=== PATIENT | male | born 1985 | race American Indian/Alaskan Native ===

== ENCOUNTER 2017-05-11 17:44 | Emergency (ER) | payer SELFPAY ==
[2017-05-11 19:24] VITALS: BP 136/85
[2017-05-11 20:27] LABS: Hematocrit 51.3 % (35.5-45.6); Hemoglobin 17.2 gm/dl (11.8-15.2); Mean Corpuscular HGB Conc 33 % (32-34); Mean Corpuscular Hemoglobin 31 pg (28-32); Mean Corpuscular Volume 92 fl (84-94); Platelet Count 255 K/mm3 (140-440); Red Blood Count 5.61 M/mm3 (3.65-5.03); Red Cell Distribution Width 13.7 % (13.2-15.2); White Blood Count 13.7 K/mm3 (4.5-11.0)
--- NOTE | 2017-05-11 20:45 | XRay Report ---
FINAL REPORT EXAM: XR CHEST ROUTINE 2V HISTORY: productive cough TECHNIQUE: Two view chest PA and lateral PRIORS: None. FINDINGS: Cardiac and mediastinal contours are unremarkable. No focal pulmonary infiltrate is identified. No pleural fluid collection seen. Pulmonary vasculature is unremarkable. IMPRESSION: Negative two-view chest
[2017-05-11 20:50] LABS: Alanine Aminotransferase 28 units/L (7-56); Albumin 4.8 g/dL (3.9-5); Albumin/Globulin Ratio 1.5 %; Alkaline Phosphatase 74 units/L (35-129); Anion Gap 20 mmol/L; BUN/Creatinine Ratio 16; Blood Urea Nitrogen 14 mg/dL (9-20); Calcium 10.2 mg/dL (8.4-10.2); Carbon Dioxide 26 mmol/L (22-30); Chloride 93.4 mmol/L (98-107); Glucose 93 mg/dL (75-100); Lipase 33 units/L (13-60); Potassium 4.3 mmol/L (3.6-5.0); Sodium 135 mmol/L (137-145); Total Protein 8.1 g/dL (6.3-8.2)
[2017-05-11 21:14] LABS: Bilirubin,Urine NEG (Negative); Blood,Urine NEG (Negative); Ketones,Urine 20 mg/dL (Negative); Leukocyte Esterase,Urine SM (Negative); Mucus,Urine 3+ /HPF; Nitrite,Urine NEG (Negative); Urobilinogen,Urine < 2.0 mg/dL (<2.0)
[2017-05-11 21:55] LABS: Basophils % (Manual) 0 % (0.0-1.8); Blastocytes % (Manual) 0 %; Eosinophils % (Manual) 0 % (0.0-4.3)
[2017-05-11 21:56] LABS: Diff Status Complete; RBC Morphology Normal
--- NOTE | 2017-05-12 00:47 | Emergency Department Report ---
HPI - General Chief Complaint: Upper Respiratory Infection Time Seen by Provider: 05/12/17 00:29 - HPI HPI: This is a 32-year-old male presents to the emergency department with a couple different complaints. The patient has been having a 2.5 week history of a productive cough. Over the past 3 days he has also been having some low back pain. He denies any problems with bowel or bladder, numbness or paresthesias or any neurological deficits. He took some ibuprofen for his symptoms and has had some relief since he has been in the emergency department. Finally he also complains of some bilateral lateral abdominal discomfort. This also appears to have improved with the ibuprofen and since being in the emergency department. He denies any other past medical history. He does not have a primary care physician. He says that he does have children and they have had some different illnesses including pinkeye recently. No recent travel. He denies any fever, chest pain, shortness of breath. He denies tobacco abuse. ED Past Medical Hx - Past Medical History Previous Medical History?: Yes - Surgical History Past Surgical History?: Yes Additional Surgical History: Left ACL surgery 2013 - Social History Smoking Status: Current Some Day Smoker Substance Use Type: Alcohol, Marijuana - Medications Home Medications: Home Medications Medication Instructions Recorded Confirmed Last Taken Type ALBUTEROL Inhaler [ProAir HFA 2 puff IH QID PRN #1 inhalation 05/12/17 Unknown Rx Inhaler] guaiFENesin/CODEINE [Robitussin AC] 5 ml PO Q6H PRN #100 ml 05/12/17 Unknown Rx ED Review of Systems ROS: Stated complaint: BACK/ABDOMINAL PAIN Other details as noted in HPI Comment: All other systems reviewed and negative Constitutional: denies: chills, fever Eyes: denies: eye pain, eye discharge, vision change ENT: denies: ear pain, throat pain Respiratory: cough. denies: wheezing Cardiovascular: denies: chest pain, edema Gastrointestinal: abdominal pain. denies: nausea, vomiting Genitourinary: denies: urgency, dysuria Musculoskeletal: back pain. denies: arthralgia Skin: denies: rash, lesions Neurological: denies: headache, numbness Physical Exam - Physical Exam Vital Signs: Vital Signs 05/11/17 05/11/17 19:19 19:27 Temperature 98.6 F 98.6 F Pulse Rate 58 L 58 L Respiratory 18 Rate Blood Pressure 136/85 Blood Pressure 136/85 [Right] O2 Sat by Pulse 100 100 Oximetry Physical Exam: GENERAL: The patient is well-developed well-nourished. HENT: Normocephalic. Atraumatic. Patient has moist mucous membranes. EYES: Extraocular motions are intact. Pupils equal reactive to light bilaterally. NECK: Supple. Trachea is midline. CHEST/LUNGS: Clear to auscultation. There is no respiratory distress noted. HEART/CARDIOVASCULAR: Regular. There is no tachycardia. There is no gallop rub or murmur. ABDOMEN: Abdomen is soft, nontender. No guarding or rebound tenderness. Patient has normal bowel sounds. There is no abdominal distention. SKIN: Skin is warm and dry. NEURO: The patient is awake, alert, and oriented. The patient is cooperative. The patient has no focal neurologic deficits. The patient has normal speech and gait. Cranial nerves II through XII grossly intact. Patellar DTR +2 over 4 bilaterally. MUSCULOSKELETAL: There is no tenderness or deformity. There is no limitation range of motion. There is no evidence of acute injury. Muscle strength 5 out of 5 for upper and lower extremities bilaterally including EHL. BACK: No midline thoracic or lumbar tenderness to palpation or deformity. ED Course Vital Signs 05/11/17 05/11/17 19:19 19:27 Temperature 98.6 F 98.6 F Pulse Rate 58 L 58 L Respiratory 18 Rate Blood Pressure 136/85 Blood Pressure 136/85 [Right] O2 Sat by Pulse 100 100 Oximetry ED Medical Decision Making - Lab Data Result diagrams: 05/11/17 20:11 05/11/17 20:11 - Radiology Data Radiology results: image reviewed interpreted by me: Chest x-ray does not show any acute process. There are no pleural effusions, obvious pneumonia and there is no pneumothorax. - Medical Decision Making 32-year-old male presents with complaint of a 3 day history of some low paraspinal back pain and some lateral lateral abdominal discomfort that appeared mostly to be the abdominal wall. However the symptoms have mostly resolved since he has been in the emergency department. He does have a lingering 2.5 week history of a cough and the coughing appears to be what has set off these other musculoskeletal and/or physical complaints. There was no cough heard during examination at this point and he does not appear to be in any respiratory distress. Labs are mostly unremarkable. He does have a mild leukocytosis but chest x-ray does not show any signs of pneumonia or any other acute processes. Vital signs stable throughout his ED course including being afebrile. He appears to have some bronchitis and some other possible upper respiratory type symptoms. He will go home on a cough suppressant and an albuterol inhaler and has been encouraged to supervisor opening and picking a decongestant as well. He has been given referrals for primary care. He will return to ER with any worsening of his symptoms or any acute distress. - Differential Diagnosis URI, muscle spasm, back strain, bronchitis Critical Care Time: No Critical care attestation.: If time is entered above; I have spent that time in minutes in the direct care of this critically ill patient, excluding procedure time. ED Disposition Clinical Impression: Bronchitis, Abdominal wall pain Back pain Qualifiers: Back pain location: low back pain Chronicity: acute Back pain laterality: bilateral Sciatica presence: without sciatica Qualified Code(s): M54.5 - Low back pain Disposition: TO HOME OR SELFCARE Is pt being admited?: No Condition: Stable Instructions: Acute Bronchitis (ED), Back Pain (ED) Additional Instructions: Please follow up with a primary care physician in the next few days. Return to the emergency Department with any worsening of your symptoms or any acute distress. You have been prescribed a medication that is sedating and therefore should not be taken prior to driving, working, and responsible for children and in no way should be mixed with alcohol of any quantity. Prescriptions: ALBUTEROL Inhaler [ProAir HFA Inhaler] 2 puff IH QID PRN #1 inhalation PRN Reason: Shortness Of Breath guaiFENesin/CODEINE [Robitussin AC] 5 ml PO Q6H PRN #100 ml PRN Reason: Cough Referrals: PRIMARY CAREMD [Primary Care Provider] - 3-5 Days SHILPA CHAVIRA MD [Staff Physician] - 3-5 Days MICHAEL WRIGHT MD [Staff Physician] - 3-5 Days [facility] [Outside] - 3-5 Days Time of Disposition: 00:51
== END 2017-05-12 01:03 | disposition home or self-care (01) ==
LOC: ED 17:44
DX: J40 Bronchitis, not specified as acute or chronic (principal); R10.30 Lower abdominal pain, unspecified; M54.5 Low back pain; F17.200 Nicotine dependence, unspecified, uncomplicated; F12.10 Cannabis abuse, uncomplicated
CPT/HCPCS: 36415; 71020; 80053; 81001; 83690; 85007; 85025; 99284